=== PATIENT | female | born 1995 | race African-American/Black ===

== ENCOUNTER 2016-09-04 | Emergency (ER) | payer OTHER, MEDICAID ==
--- NOTE | 2016-09-04 18:38 | ED Physician Documentation ---
History of Present Illness - Stated complaint Stated Complaint: N/V/COUGH - Chief complaint Chief Complaint: [facility] PAST MEDICAL HISTORY - Past Medical History Past Medical History: Yes Cardiovascular: None Respiratory: None Neuro: None Endocrine/Autoimmune: None GI: None : None HEENT: None Psych: Depression Musculoskeletal: None Derm: None - Past Surgical History Past Surgical History: Yes General: Cholecystectomy /[employer] CHIEF: section - Present Medications Home Medications: Ambulatory Orders Medication Instructions Recorded Confirmed Amoxicillin/Potassium Clav 1 each PO Q12H #14 tablet 09/04/16 [Augmentin 875-125 Tablet] Fluticasone [Flonase] 1 sprays INDIRA BID PRN #1 bottle 09/04/16 - Allergies Allergies/Adverse Reactions: Allergies Allergy/AdvReac Type Severity Reaction Status Date / Time Tuberculosis vaccination Allergy Unknown Uncoded 09/30/14 14:35 - Social History Does the pt smoke?: No Smoking Status: Never smoker Does the pt drink ETOH?: No Does the pt have substance abuse?: No - Immunizations Immunizations are current?: Yes - POLST Patient has POLST: No Results - Vitals Vitals: Vital Signs - 24 hr 09/04/16 17:12 Temperature 36.4 C L Heart Rate 99 Respiratory 18 Rate Blood Pressure 132/79 H O2 Saturation 99 Oxygen O2 Source Room air Departure - Departure Disposition: Home, Self Care Clinical Impression: Sinusitis Qualifiers: Sinusitis location: unspecified location Chronicity: acute Recurrence: not specified as recurrent Qualified Code(s): J01.90 - Acute sinusitis, unspecified Condition: Good Instructions: ED Sinusitis Abx Tx Prescriptions: Amoxicillin/Potassium Clav [Augmentin 875-125 Tablet] 1 each PO Q12H #14 tablet Fluticasone [Flonase] 1 sprays INDIRA BID PRN #1 bottle PRN Reason: allergies Comments: Motrin and tylenol as needed for the pain. And try a sinus irrigation system such as the haja pot And please get your blood pressure rechecked when you feel better - it was high today
== END 2016-09-04 18:44 | disposition home or self-care (01) ==
CPT/HCPCS: 99283

== ENCOUNTER 2016-09-24 19:00 | Emergency (ER) | payer OTHER, MEDICAID ==
[2016-09-24] MEDS ORDERED: FLUCONAZOLE 100 MG TABLET PO STA (21:01)
[2016-09-24] MEDS ORDERED: FLUCONAZOLE 100 MG TABLET ONE (21:08)
== END 2016-09-24 21:18 | disposition home or self-care (01) ==
DX: B37.3 Candidiasis of vulva and vagina (principal)
CPT/HCPCS: 81003; 81025; 87210; 87220; 87491; 87591; 99283; A9270

== ENCOUNTER 2016-12-01 21:59 | Emergency (ER) | payer MEDICAID, OTHER | END 2016-12-02 00:31 | disposition home or self-care (01) | DX: S10.93XA Contusion of unspecified part of neck, initial encounter (principal); Y04.2XXA Assault by strike against or bumped into by another person, initial encounter ==